=== PATIENT | female | born 1980 | race Caucasian/White ===

== ENCOUNTER 2022-03-16 08:30 | Outpatient (RCR) | payer OTHER, SELFPAY ==
[2022-02-20 12:25] VITALS: BMI 25.7
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
--- NOTE | 2022-02-24 12:35 | PC.NURSE ---
Patient called upset stating that her electricity has been shut off. Patient stated she owes $400.00. Subtext told her to call her PCP if she has medical issues (which patient does) and let her PCP know that her electricity has been shut off. APS told her they are able to put back on right away with a note from her PCP. Patient called and spoke to the nurse at her PCP's office and relayed the information. Patient awaiting her PCP's office to call her back. Advised patient to go to her car to charge her phone. Gave patient the number to fuel assistance as she stated she is going to need help with that also. Patient also given 211 number to call for services.
--- NOTE | 2022-02-25 09:34 | PC.NURSE ---
Patient called this morning and stated she does not have electricity today. Stated she did get a note from her doctor and was on the phone with the [employer] yesterday who told her her electricity will be turned back on. Patient stated she is on hold with the [employer] when I called her back this morning. She stated she will be in group if her electricity is turned on by 0945 if not she hopes to return tomorrow.
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
--- NOTE | 2022-03-04 12:27 | HO.PHPPROGNO ---
Subjective Subjective Date of Service: 03/04/22 Reason For Visit: depression,anxiety,PTSD Medical Problems Affecting Mental Status: No Interim History: Describes mood as ?okay, a little better than yesterday ?. Feels lithium continues to help improve mood. Reports PTSD related nightmares. No SI/HI/SIB, no safety concerns at this time. Medication Compliance: Yes Side effects from medications: No Attending Groups: Yes Review of Systems Acute medical concerns: No Medical Review of Systems: unchanged Review of Systems Review of Systems Yes all other systems are reviewed and are negative Constitutional: Reports no additional constitutional complaints Mental Status Exam Mental Status Exam Narrative: NAD. No SI reported. Fully alert and cooperative during encounter. Patient Appearance: Well Grooomed and Appropriate Patient Orientation: Person, Place, Time and Situation Level of Consciousness: Appropriate Patient Behavior: Appropriate, Cooperative and Good Eye Contact Mood Description: Depressed (states improving) and Anxious (states improving) Affect Description: Depressed and Anxious Patient Cognition Impaired: No Ability to Follow Directions: Good Speech Pattern: Clear, Appropriate and Coherent Memory Description: Intact Hallucinations: None Delusions: Not Present Thought Process: Intact Thought Content: positive for Intact Depressive Symptoms: Increased Anxiety, Difficulty Sleeping, Feelings of Guilt, Unhappiness, Increased Fatigue, Low Self Esteem and Difficulty Concentrating Judgement: Fair Diagnostics Vital Signs (24Hr): BMI result Body Mass Index 25.7 Assessment & Plan Assessment & Plan (1) Major depressive disorder, recurrent severe without psychotic features: Status: Acute Code(s): F33.2 - Major depressive disorder, recurrent severe without psychotic features Assessment and Plan: Reports that she feels her mood is slightly improved, although she continues with depression and anxiety symptoms. She states that she feels the lithium is helping. No thoughts of harm to self or others, no safety concerns at this time. Reports she feels fragmented with groups, wishes to be more consistent daily. (2) Generalized anxiety disorder: Status: Acute Code(s): F41.1 - Generalized anxiety disorder (3) Post-traumatic stress disorder, chronic: Status: Acute Code(s): F43.12 - Post-traumatic stress disorder, chronic Assessment and Plan: Reports PTSD related nightmares. States that she believes this may be due to processing more while in PHP. We discussed adding prazosin 1 mg. She states she would like to try this. Discussed medication in detail, including risks, benefits, side effects. (4) Opioid use disorder, severe, in early remission, dependence: Status: Acute Code(s): F11.21 - Opioid dependence, in remission Assessment and Plan: Reports that she maintains abstinent from using substances at this time. Continues with daily methadone dosing. Plan 1. Continue with current [facility] plan of care. 2. Start prazosin 1 mg at bedtime for nightmares. 3. Continue other medications as currently prescribed. 4. Follow-up as per protocol. Certification I certify that partial hospital treatment is medically necessary due to the symptoms and problems resulting from the patient's mental illness and the failure to treat the patient at the partial hospital level of care would likely result in the patient requiring inpatient psychiatric care which could not be prevented at a less intensive level of care. I spent minutes with the patient and/or on the patient floor today, greater than?50% of which was spent counseling/coordinating care. Discharge Plan Discharge Attending provider: Stepan Limon Medications: New lithium carbonate 150 mg capsule 150 mg PO DAILY 14 Days Qty: 14 0RF prazosin 1 mg capsule 1 mg PO BEDTIME 7 Days Qty: 7 0RF No Action citalopram [Celexa] 40 mg Tablet 40 mg PO DAILY ondansetron HCl 8 mg Tablet 8 mg PO Q8H clonazepam [Klonopin] 0.5 mg Tablet 0.5 mg PO DAILY PRN (Reason: Anxiety) melatonin 3 mg Tablet 3 mg PO BEDTIME PRN (Reason: Insomnia) baclofen 20 mg Tablet 20 mg PO TID gabapentin 800 mg Tablet 800 mg PO TID levetiracetam [Keppra] 750 mg Tablet 750 mg PO BID methadone [Methadone Intensol] 10 mg/mL Concentrate 85 mg PO DAILY albuterol sulfate [ProAir HFA] 90 mcg/actuation Hfa Aerosol Inhaler 2 puff INHALATION Q4H PRN (Reason: Shortness Of Breath) Telehealth Telehealth Location of provider rendering services: practice address Location of patient: address on file Patient Identification confirmed using: Name, : Yes Telehealth method: video Patient verbally consented to treatment: Yes Patient verbally consented to billing insurance company: Yes Patient informed of any privacy concerns related to visit: Yes Minutes spent on Phone/Video with Pt.: 15
--- NOTE | 2022-03-09 09:48 | PC.NURSE ---
Patient did not show up to the community meeting. I called her and left a message to call me back. Patient called back at 0945 and stated she told someone on Wednesday that she had a neurology appointment this morning at 0800. I apologized to her as staff was not made aware of this. Patient plans on attending tomorrow and for the rest of the week.
--- NOTE | 2022-03-12 14:33 | HO.PHPPROGNO ---
Subjective Subjective Date of Service: 03/12/22 Reason For Visit: depression,anxiety,PTSD Medical Problems Affecting Mental Status: No Interim History: states I'm doing better . Describes mood as ?more stable ?. States lithium is helping, prazosin is helping with nightmares. States ?my ADHD is not under control so much ?. No SI/HI, no safety concerns. Medication Compliance: Yes Side effects from medications: No Attending Groups: Yes Review of Systems Acute medical concerns: No Medical Review of Systems: unchanged Review of Systems Review of Systems Yes all other systems are reviewed and are negative Constitutional: Reports no additional constitutional complaints Mental Status Exam Mental Status Exam Narrative: NAD. No SI reported. Fully alert and cooperative during encounter. Patient Appearance: Well Grooomed and Appropriate Patient Orientation: Person, Place, Time and Situation Level of Consciousness: Appropriate Patient Behavior: Appropriate, Cooperative and Good Eye Contact Mood Description: Depressed (states symptoms continue to lessen) and Anxious (states feeling less anxious, but still present) Affect Description: Depressed and Anxious Patient Cognition Impaired: No Ability to Follow Directions: Good Speech Pattern: Clear, Appropriate and Coherent Memory Description: Intact Hallucinations: None Delusions: Not Present Thought Process: Intact Thought Content: positive for Intact Depressive Symptoms: Increased Anxiety, Feelings of Guilt, Unhappiness, Low Self Esteem and Difficulty Concentrating Judgement: Fair Diagnostics Vital Signs (24Hr): BMI result Body Mass Index 25.7 Assessment & Plan Assessment & Plan (1) Major depressive disorder, recurrent severe without psychotic features: Status: Acute Code(s): F33.2 - Major depressive disorder, recurrent severe without psychotic features Assessment and Plan: Patient reports that she feels symptoms of depression are lessening. Reports that mood is less labile. Attributes this to the added lithium. Which is to remain taking with and 150 mg daily as an adjunct of med at this time. No SI/HI, no safety concerns. Request refill. (2) Generalized anxiety disorder: Status: Acute Code(s): F41.1 - Generalized anxiety disorder Assessment and Plan: Patient report reports that she feels ?fidgety, restless, disorganized ?at times. States she does not believe this is actually anxiety but more related to ADHD. Per chart, ADHD is not listed as a diagnosis either present or in history. Patient states that she will speak with her outpatient psychiatric provider regarding any medications regarding this. We did discuss nonpharmacological approaches, including exercise in the morning, use a jump rope or a mini trampoline, for short bursts of energy release during day. She stated that she would consider these. (3) Post-traumatic stress disorder, chronic: Status: Acute Code(s): F43.12 - Post-traumatic stress disorder, chronic Assessment and Plan: Reports that PTSD related nightmares have been greatly reduced with use of prazosin, wishes to remain taking medication. Request refill. (4) Opioid use disorder, severe, in early remission, dependence: Status: Acute Code(s): F11.21 - Opioid dependence, in remission Assessment and Plan: Continues to abstain from substances, receives methadone daily. No concerns. Has been attending COD groups, fully participates in group discussions. Finding them helpful. Plan 1. Continue with current [facility] plan of care. 2. Continue with current medication regimen, refills for prazosin and lithium sent to pharmacy. 3. Follow-up as per protocol. Patient educated on: diagnosis, medication risk/benefits, substance abuse and therapeutic strategies Informed Consent: understands Reason for contiued partial hosp. stay Substantial Risk for: inability to function, rapid decompensation and med/psych decompensation Certification I certify that partial hospital treatment is medically necessary due to the symptoms and problems resulting from the patient's mental illness and the failure to treat the patient at the partial hospital level of care would likely result in the patient requiring inpatient psychiatric care which could not be prevented at a less intensive level of care. I spent minutes with the patient and/or on the patient floor today, greater than?50% of which was spent counseling/coordinating care. Discharge Plan Discharge Attending provider: Stepan Limon Medications: New prazosin 1 mg capsule 1 mg PO BEDTIME 30 Days Qty: 30 0RF lithium carbonate 150 mg capsule 150 mg PO DAILY 30 Days Qty: 30 0RF No Action citalopram [Celexa] 40 mg Tablet 40 mg PO DAILY ondansetron HCl 8 mg Tablet 8 mg PO Q8H clonazepam [Klonopin] 0.5 mg Tablet 0.5 mg PO DAILY PRN (Reason: Anxiety) melatonin 3 mg Tablet 3 mg PO BEDTIME PRN (Reason: Insomnia) baclofen 20 mg Tablet 20 mg PO TID gabapentin 800 mg Tablet 800 mg PO TID levetiracetam [Keppra] 750 mg Tablet 750 mg PO BID methadone [Methadone Intensol] 10 mg/mL Concentrate 85 mg PO DAILY albuterol sulfate [ProAir HFA] 90 mcg/actuation Hfa Aerosol Inhaler 2 puff INHALATION Q4H PRN (Reason: Shortness Of Breath) Telehealth Telehealth Location of provider rendering services: practice address Location of patient: address on file Patient Identification confirmed using: Name, : Yes Telehealth method: video Patient verbally consented to treatment: Yes Patient verbally consented to billing insurance company: Yes Patient informed of any privacy concerns related to visit: Yes Minutes spent on Phone/Video with Pt.: 15
--- NOTE | 2022-03-16 14:57 | PC.NURSE ---
Spoke with patient today re: hx seizure disorder. Reviewed seizure precautions with patient who verbalized understanding. Patient understands if she has a seizure in group we will call 911 and per patient request notify her ex boyfriend at #[phone]. Patient states she lives with ex boyfriend.
--- NOTE | 2022-03-18 14:30 | PC.NURSE ---
The client called out this morning . She states that her dog has been vomiting and she is going to take him to the vet.
--- NOTE | 2022-03-19 14:52 | PC.NURSE ---
I spoke with the clients mother Sandie who is the clients emergency contact. She states that malina thought that she was done yesterday and went to work today. She spoke with Malina today. Malina is well and her dog is also doing well.
--- NOTE | 2022-03-23 09:38 | PC.NURSE ---
Patient did not attend her last day at the program. Sharmila Scanlon spoke with patient regarding discharge.
== END 2022-03-18 23:59 | disposition home or self-care (01) ==
LOC: HO.PHPA 08:30
PROVIDERS: Visit Provider Psychiatry & Neurology Psychiatry
DX: F33.2 Major depressive disorder, recurrent severe without psychotic features (principal); F41.1 Generalized anxiety disorder; F43.12 Post-traumatic stress disorder, chronic; F11.21 Opioid dependence, in remission; F14.21 Cocaine dependence, in remission; Z79.899 Other long term (current) drug therapy
CPT/HCPCS: 90791; 90853